=== PATIENT | male | born 1985 | race African-American/Black ===

== ENCOUNTER 2016-04-19 01:59 | Emergency (ER) ==
[2016-04-19] MEDS ORDERED: ALBUTEROL NEB INH ONE (02:09)
--- NOTE | 2016-04-19 02:11 | PROVIDER DOCUMENTATION ---
HPI-General Adult - General Source: patient - History of Present Illness -Gen Adult Nature of Presenting Problems: 31 y/o m presents to the ed with chest pain along with intoxication. pt states he was at a store and when he came out he got weak and fell to the ground and had to have help getting up. pt appears to be intoxicated but states he only had a 1/2 shot of crown royal. Location of Pain/Injury: reports: chest Pain Radiation: reports: no radiation Quality of Pain: reports: aching Severity: reports: mild Onset/Duration: reports: 1-3 hours ago Timing: reports: still present Associated Symptoms: reports: weakness Similar Symptoms Previously?: No Recently seen or treated by another doctor?: No <Aviva Dominique - Last Filed: 04/19/16 02:15> <Arnulfo Mayer - Last Filed: 04/19/16 03:32> - General Stated Complaint: intoxication Time Seen by Provider: 04/19/16 02:03 Allergies/Adverse Reactions: Patient Allergies Allergy/AdvReac Type Severity Reaction Status Date / Time No Known Allergies Allergy Verified 04/19/16 02:18 Home Medications: No Home Medications 01/05/16 Review of Systems - Adult - REVIEW OF SYSTEMS - ADULT Constitutional: denies: chills, fever Cardiovascular: reports: chest pain. denies: palpitations Neurological: denies: dizziness/vertigo, headache/migraines <Aviva Dominique - Last Filed: 04/19/16 02:15> Past History - Adult - PAST MEDICAL HISTORY-ADULT Review of Records: reports: Old Records Reviewed, Nursing Assessment Review, Medications Reviewed Major Childhood Illnesses: reports: denies history Cardiovascular: reports: denies history Endocrine/Immune: reports: denies history - PRIOR SURGERIES/PROCEDURES Surgical/Procedure History: reports: none - PRIOR HOSPITALIZATIONS Prior Hospitalizations: reports: none - IMMUNIZATION STATUS Childhood Immunizations: UTD Flu Vaccine: See Nurse Assessment - FAMILY HISTORY Family History: reviewed, not pertinent - SOCIAL HISTORY Smoking: non-smoker <Aviva Dominique - Last Filed: 04/19/16 02:15> Physical Exam-General - PHYSICAL EXAM-ADULT Initial Vital Signs Reviewed: Yes - CONSTITUTIONAL General Appearance: alert, no apparent distress - EYES Eyes: PERRL/EOMI, pink conjunctivae, fundi clear, no AV nicking - HEAD, EARS, NOSE, MOUTH & THROAT HENMT: normocephalic/atraumatic, moist mucous membranes, normal ENT inspection, TMs normal - NECK Neck: non-tender, full range of motion, supple - RESPIRATORY Respiratory: chest non-tender, lungs clear, normal breath sounds - CARDIOVASCULAR Cardiovascular: normal peripheral pulses, regular rate, rhythm - GASTROINTESTINAL (ABDOMEN) Abdominal Exam: normal bowel sounds, non tender, soft - LYMPHATIC Lymphatic: no adenopathy - MUSCULOSKELETAL Back Exam: normal inspection - SKIN Integumentary: normal color, normal turgor, warm/dry - PSYCHIATRIC Psych/Mental Status: normal mood/affect, normal thought content, normal thought process, oriented x 3 <Aviva Dominique - Last Filed: 04/19/16 02:15> Progress - EKG 1 Time of EKG reading by physician:: 02:10 EKG Read and Signed by:: Arnulfo Mayer Rate: 103 Rhythm: sinus tachy <Aviva Dominique - Last Filed: 04/19/16 02:15> - PLAN OF CARE/RESULTS Progress/Plan/Lab Results: Laboratory Tests 04/19/16 04/19/16 04/19/16 02:20 02:20 02:20 WBC 8.95 RBC 4.86 Hgb 15.1 Hct 43.4 MCV 89.3 MCH 31.1 H MCHC 34.8 RDW Std Deviation 12.4 Plt Count 207 MPV 11.2 H Immature Gran % (Auto) 0.0 Neut % (Auto) 58.4 Lymph % (Auto) 28.5 [place] % (Auto) 10.7 H Eos % (Auto) 1.6 Baso % (Auto) 0.8 Immature Gran # (Auto) 0.00 Neut # (Auto) 5.23 Lymph # (Auto) 2.55 [place] # (Auto) 0.96 H Eos # (Auto) 0.14 Baso # (Auto) 0.07 Sodium 138 Potassium 4.7 Chloride 98 Carbon Dioxide 18 L Anion Gap 22 BUN 12 Creatinine 1.0 Estimated GFR/1.73 m2 > 60 BUN/Creatinine Ratio 12 Glucose 90 Calculated Osmolality 275 Calcium 9.1 Magnesium 1.9 Total Bilirubin 0.25 AST 39 H ALT 27 Alkaline Phosphatase 59 Total Protein 7.9 Albumin 4.1 Globulin 3.8 Albumin/Globulin Ratio 1.1 Plasma/Serum Ethyl Alc 166 H Orders Category Date Time Status ALCOHOL BLOOD Stat Lab 04/19/16 02:20 Completed CBC WITH ELECTRONIC DIFF [HEME] Stat Lab 04/19/16 02:20 Completed CMP [COMPREHENSIVE METABOLIC PANEL] [CHEM] Stat Lab 04/19/16 02:20 Completed MAGNESIUM [CHEM] Stat Lab 04/19/16 02:20 Completed 0.9% Sodium Chloride Inj [Ns] 1,000 ml Med 04/19/16 02:16 Discontinued IV 999 mls/hr Albuterol [Albuterol Neb] Med 04/19/16 02:09 Discontinued 5 mg INH NOW ONE Ondansetron [Zofran] Med 04/19/16 02:16 Discontinued 8 mg IV NOW ONE EKG [EKG] Stat Ther 04/19/16 01:59 Ordered Vital Signs Temp Pulse Resp BP Pulse Ox 04/19/16 02:05 97.6 F 103 H 17 123/70 98 No Known Allergies Allergy (Verified 04/19/16 02:18) No Home Medications 01/05/16 Laboratory 04/19/16 04/19/16 04/19/16 02:20 02:20 02:20 WBC 8.95 RBC 4.86 Hgb 15.1 Hct 43.4 MCV 89.3 MCH 31.1 H MCHC 34.8 RDW Std Deviation 12.4 Plt Count 207 MPV 11.2 H Immature Gran % (Auto) 0.0 Neut % (Auto) 58.4 Lymph % (Auto) 28.5 [place] % (Auto) 10.7 H Eos % (Auto) 1.6 Baso % (Auto) 0.8 Immature Gran # (Auto) 0.00 Neut # (Auto) 5.23 Lymph # (Auto) 2.55 [place] # (Auto) 0.96 H Eos # (Auto) 0.14 Baso # (Auto) 0.07 Sodium 138 Potassium 4.7 Chloride 98 Carbon Dioxide 18 L Anion Gap 22 BUN 12 Creatinine 1.0 Estimated GFR/1.73 m2 > 60 BUN/Creatinine Ratio 12 Glucose 90 Calculated Osmolality 275 Calcium 9.1 Magnesium 1.9 Total Bilirubin 0.25 AST 39 H ALT 27 Alkaline Phosphatase 59 Total Protein 7.9 Albumin 4.1 Globulin 3.8 Albumin/Globulin Ratio 1.1 Plasma/Serum Ethyl Alc 166 H - REASSESSMENT Reassessment #1 Time Reassessed: 03:30 Status: improving <Filiberto Mayerin DickJose - Last Filed: 04/19/16 03:32> Departure <Aviva Dominique - Last Filed: 04/19/16 02:15> - Departure Time of Disposition Order: 03:30 Certified Medical Emergency: Emergent <Arnulfo MayerJose - Last Filed: 04/19/16 03:32> - Departure DIAGNOSIS: Alcohol intoxication Qualifiers: Complication of substance-induced condition: uncomplicated Qualified Code(s): F10.120 - Alcohol abuse with intoxication, uncomplicated Disposition: HOME 01 Condition: Good Additional Instructions: ED Follow Up Instructions: You have been treated by a care provider in the Emergency Department. These instructions are being provided to you so you can have an understanding of how to care for yourself upon discharge. Upon discharge from the Emergency Department, you are responsible for making arrangements for follow-up care by a physician of your choice. Take all prescribed medications as directed. Return to the Emergency Department immediately for any new or worsening symptoms. You may call the Physician Referral phone number at [phone] to obtain a list of Physicians who are taking new patients. Physician Attestation
[2016-04-19] MEDS ORDERED: ZOFRAN IV ONE (02:16)
[2016-04-19] MEDS ORDERED: NS 1,000 ML IV ONE (02:16)
[2016-04-19 02:54] LABS: MANUAL DIFF NEEDED? NO
[2016-04-19 02:56] LABS: BASO% 0.8 % (0.0-0.8); EOS# 0.14 X1000 (0.0-0.7); EOS% 1.6 % (0.0-10.0); HEMATOCRIT 43.4 % (42.0-52.0); HEMOGLOBIN 15.1 g/dL (14.0-18.0); LYMPH# 2.55 X1000 (1.2-3.4); LYMPH% 28.5 % (20.5-51.1); MCH 31.1 PG (27-31); MCHC 34.8 g/dL (33-37); MCV 89.3 FL (81-99); MONO# 0.96 X1000 (0.11-0.59); MONO% 10.7 % (1.7-9.3); MPV 11.2 FL (7.4-10.4); NEUT% 58.4 % (42.2-75.2); PLT 207 X1000 (130-400); RBC 4.86 XMIL (4.7-6.1)
[2016-04-19 03:22] LABS: AGAP 22; ALBUMIN 4.1 g/dL (3.5-5.0); ALKALINE PHOSPHATASE 59 U/L (32-122); BUN 12 mg/dL (8-22); CALCIUM 9.1 mg/dL (8.8-10.2); CHLORIDE 98 mmol/L (98-107); COSMO 275; GOT 39 U/L (10-34); GPT 27 U/L (10-44); MAGNESIUM 1.9 mg/dL (1.5-2.7); POTASSIUM 4.7 mmol/L (3.5-5.1); SODIUM 138 mmol/L (136-145); TCO2 18 mmol/L (25-35); TOTAL BILIRUBIN 0.25 mg/dL (0.20-1.00); TOTAL PROTEIN 7.9 g/dL (6.3-8.3)
[2016-04-19 03:58] VITALS: BP 108/62
--- NOTE | 2016-04-19 06:19 | EKG Report ---
Test Performed on : 04/19/2016 02:04:05 AM Test Reason : CP Blood Pressure : / mmHG Vent. Rate : 103 BPM Atrial Rate : 103 BPM P-R Int : 170 ms QRS Dur : 068 ms QT Int : 306 ms P-R-T Axes : 047 -10 022 degrees QTc Int : 400 ms Sinus tachycardia. Moderate voltage criteria for LVH, may be normal variant Borderline ECG No previous ECGs available Unconfirmed Result
== END 2016-04-19 03:57 | disposition home or self-care (01) ==
LOC: EDBD → ED 01:59
DX: F10.120 Alcohol abuse with intoxication, uncomplicated (principal); R07.9 Chest pain, unspecified; R53.1 Weakness; W19.XXXA Unspecified fall, initial encounter
CPT/HCPCS: 80053; 83735; 85025; 93005; 96374; G0480; J2405; J7030

== ENCOUNTER 2016-06-17 16:48 | Emergency (ER) ==
[2016-06-17 17:18] VITALS: BP 133/68
--- NOTE | 2016-06-17 17:26 | PROVIDER DOCUMENTATION ---
HPI-Musculoskeletal Pain/Inj - GENERAL Chief Complaint: Work Related Injury Stated Complaint: work related injury Time Seen by Provider: 06/17/16 17:22 Source: patient - HX OF PRESENT ILLNESS-MUSKULOSKELTAL Nature of Presenting Problem: This pt presents to ED with c/o of right wrist/hand pain that started last night. 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 Reports he has sprained his right wrist several times before. Quality of Pain: reports: aching Severity in ED: mild Onset/Duration: last night Timing: still present Modifying Factors: improves with: movement Any recent injury?: Yes Locality of Occurance: Work Similar Symptoms Previously?: Yes (previous fx) Recently seen or treated by another doctor?: No Review of Systems - Adult - REVIEW OF SYSTEMS - ADULT Constitutional: reports: no symptoms reported. denies: chills, fever Eyes: reports: no symptoms reported. denies: discharge, dry eyes Ears, Nose, Mouth & Throat: reports: no symptoms reported. denies: ear discharge, ear pain Cardiovascular: reports: no symptoms reported. denies: chest pain, edema Respiratory: reports: no symptoms reported. denies: chronic cough, cough Gastrointestinal: reports: no symptoms reported. denies: abdominal pain, hematemesis Genitourinary: reports: no symptoms reported. denies: dysuria, discharge Musculoskeletal: reports: bone pain, joint pain. denies: back pain, frequent leg cramps, joint swelling Integumentary: reports: no symptoms reported. denies: hives, hair loss Neurological: reports: no symptoms reported. denies: ataxia, dizziness/vertigo Psychiatric: reports: no symptoms reported. denies: anxiety, anti-depressant use Endocrine: reports: no symptoms reported Hematologic/Lymphatic: reports: no symptoms reported Allergic/Immunologic: reports: no symptoms reported All Other Systems: Reviewed and Negative Past History - Adult - PAST MEDICAL HISTORY-ADULT Review of Records: reports: Old Records Reviewed, Nursing Assessment Review, Medications Reviewed, Social history reviewed & non-contributory. Major Childhood Illnesses: reports: denies history Cardiovascular: reports: denies history Respiratory: reports: denies history Gastrointestinal: reports: denies history Obstetrical/Gynecological: reports: denies history Genitourinary: reports: denies history Musculoskeletal: reports: denies history Neurological: reports: denies history Endocrine/Immune: reports: denies history Other Conditions: reports: denies history - PRIOR SURGERIES/PROCEDURES Surgical/Procedure History: reports: none - PRIOR HOSPITALIZATIONS Prior Hospitalizations: reports: none - IMMUNIZATION STATUS Childhood Immunizations: UTD Flu Vaccine: See Nurse Assessment - FAMILY HISTORY Family History: reviewed, not pertinent Physical Exam-Injury Related - Physical Exam-Injury Related Initial Vital Signs Reviewed: Yes General Appearance: appears well, alert, no apparent distress Eyes: PERRL/EOMI, pink conjunctivae Head, Ears, Nose, Mouth & Throat: normocephalic/atraumatic, moist mucous membranes, normal ENT inspection Neck: non-tender, full range of motion, supple, normal inspection Respiratory: chest non-tender, lungs clear, normal breath sounds, no pleuratic chest pain, no respiratory distress, no accessory muscle use Cardiovascular: normal peripheral pulses, regular rate, rhythm Peripheral Pulses: radial (R): 2+, radial (L): 2+ Abdominal Exam: normal bowel sounds, non tender, soft Back Exam: normal inspection, no CVA tenderness, no vertebral tenderness Extremity: normal gait, normal inspection, tenderness. negative: pulse deficit , pedal edema, swelling Integumentary: normal color, warm/dry, blanching Neurologic: grossly normal, no motor/sensory deficits Psych/Mental Status: normal mood/affect, normal thought content, normal thought process, oriented x 3 Progress - PLAN OF CARE/RESULTS Progress/Plan/Lab Results: Orders Category Date Time Status Wrist Splint DIRECTED Care 06/17/16 17:43 Active HAND COMPLETE RIGHT [RAD] Stat Exams 06/17/16 17:24 Taken WRIST COMPLETE RIGHT [RAD] Stat Exams 06/17/16 17:24 Taken Vital Signs Temp Pulse Resp BP Pulse Ox 06/17/16 17:16 98.5 F 86 16 133/68 100 No Known Allergies Allergy (Verified 04/19/16 02:18) No Home Medications 01/05/16 - XRAY 1 XRAY: Right XRAY Study: Wrist, Hand XRAY Interpretation: nad Departure - Departure Time of Disposition Order: 17:45 DIAGNOSIS: Wrist sprain Qualifiers: Encounter type: initial encounter Laterality: right Qualified Code(s): S63.501A - Unspecified sprain of right wrist, initial encounter Disposition: HOME 01 Certified Medical Emergency: Urgent Condition: Good Additional Instructions: Take medication as prescribed. Rest, ice and elevate. Follow up with an orthopedist as needed. ED Follow Up Instructions: You have been treated by a care provider in the Emergency Department. These instructions are being provided to you so you can have an understanding of how to care for yourself upon discharge. Upon discharge from the Emergency Department, you are responsible for making arrangements for follow-up care by a physician of your choice. Take all prescribed medications as directed. Return to the Emergency Department immediately for any new or worsening symptoms. You may call the Physician Referral phone number at [phone] to obtain a list of Physicians who are taking new patients. Prescriptions: Cyclobenzaprine [Flexeril] 10 mg PO TID #20 tablet Meloxicam [Mobic] 7.5 mg PO DAILY PRN PRN #15 tablet PRN Reason: Pain Referrals: None,PCP [Primary Care Provider] - Rober Lara MD [STAFF PHYSICIAN] - Attestation - Physician/ JOSE Attestation Patient care was provided by Advanced Practice Provider:: Yes Advanced Practice Provider:: Huang Michael Advanced Practice Provider documentation review:: The Mid-level provider documentation, treatment plan and medical decision making was reviewed by the physician who agrees with all treatment and medical decision making by the [facility].
--- NOTE | 2016-06-17 18:10 | Diag Imaging Result Document ---
PROCEDURE NAME: WRIST COMPLETE RIGHT - 06/17/2016 RIGHT WRIST THREE VIEWS: FINDINGS: No fracture. No dislocation. IMPRESSION: No acute bony injury.
--- NOTE | 2016-06-17 18:12 | Diag Imaging Result Document ---
PROCEDURE NAME: HAND COMPLETE RIGHT - 06/17/2016 RIGHT HAND, 3 VIEWS: No fracture. No dislocation. IMPRESSION: No acute bony injury.
== END 2016-06-17 18:22 | disposition home or self-care (01) ==
LOC: ED 16:48
DX: S63.501A Unspecified sprain of right wrist, initial encounter (principal); M25.531 Pain in right wrist; M79.641 Pain in right hand; W50.0XXA Accidental hit or strike by another person, initial encounter
CPT/HCPCS: 99283